=== PATIENT | male | born 1950 | race Caucasian/White ===

== ENCOUNTER 2016-09-07 07:33 | Emergency (ER) | payer BC ==
[2016-09-07] MEDS ORDERED: Tetan/Diph/Pertus SYR(Tdap)* 0.5 ML SYR(BOOSTRIX) use SYR IM ONE (07:54)
[2016-09-07 07:59] VITALS: BP 137/67
--- NOTE | 2016-09-07 08:00 | UC ---
Skin Complaint HPI - HPI Summary HPI Summary: FOREIGN BODY LEFT PALM X 1 DAY THORN WENT IN THE LEFT PALM , + PAIN , SWELLING, HE THINK HE GOT THE THORN OUT NO FEVER, NO CHILLS, NO ERYTHEMA - History of Current Complaint Chief Complaint: UCUpperExtremity Time Seen by Provider: 09/07/16 07:40 Stated Complaint: FB IN LEFT HAND Hx Obtained From: Patient Onset/Duration: Sudden Onset, Lasting Days - 1, Still Present Timing: Constant Onset Severity: Moderate Current Severity: Moderate Location: Hand (Right) - RIGHT PALM Character: Pain, Redness, Raised, Painful Aggravating: Touch Alleviating: Nothing Associated Signs & Symptoms: Positive: Negative. Negative: Fever, Chills, Cough , Wheezing Related History: Foreign Body - Allergy/Home Medications Allergies/Adverse Reactions: Allergies Allergy/AdvReac Type Severity Reaction Status Date / Time No Known Allergies Allergy Verified 09/07/16 07:41 Review of Systems Constitutional: Negative Skin: Other - FB LEFT HAND Eyes: Negative ENT: Negative Respiratory: Negative All Other Systems Reviewed And Are Negative: Yes PMH/Surg Hx/FS Hx/Imm Hx Previously Healthy: Yes - Surgical History Surgical History: Yes Surgery Procedure, Year, and Place: ACDF-C3/C4-4-5 YRS AGO-[place]. [facility] REMOVED-OFFICE. 2 HIP RESURFACING. VASECTOMY. CARPAL TUNNEL. POLYPECTOMY. Laminectomy 2016 - Family History Known Family History: Negative: Diabetes - Social History Alcohol Use: None Substance Use Type: Marijuana Substance Use Comment - Amount & Last Used: [facility] Smoking Status (MU): Never Smoked Tobacco - Immunization History Most Recent Influenza Vaccination: 2016 Most Recent Tetanus Shot: UNKNOWN Most Recent Pneumonia Vaccination: UTD Physical Exam Triage Information Reviewed: Yes Appearance: Well-Appearing, No Pain Distress, Well-Nourished Vital Signs: Initial Vital Signs Temp 97.4 F 09/07/16 07:43 Pulse 70 09/07/16 07:43 Resp 18 09/07/16 07:43 BP 137/67 09/07/16 07:43 Pulse Ox 99 09/07/16 07:43 Vital Signs Reviewed: Yes Eyes: Positive: Conjunctiva Clear ENT: Positive: Normal ENT inspection, Hearing grossly normal, Pharynx normal Neck: Positive: Supple, Nontender, No Lymphadenopathy Respiratory: Positive: Chest non-tender, Lungs clear, Normal breath sounds, No respiratory distress Cardiovascular: Positive: RRR, No Murmur, Pulses Normal Abdominal Exam: Normal Skin: Positive: Other - + PUNCTURE WOUND LEFT PALM , NO FB NOTED, MILD TENDERNESS, NO ERYTHEMA, NO SWELLING Course/Dx - Diagnoses Provider Diagnoses: FB LEFT PALM. PUNCTURE WOUND LEFT HAND Discharge - Discharge Plan Condition: Stable Disposition: HOME Prescriptions: Amoxicillin/Clavulanate TAB* [Augmentin TAB 875*] 875 mg PO BID #20 tab Patient Education Materials: Soft Tissue Foreign Body (ED), Puncture Wound (ED) Referrals: Arun DICK,Jude Rosa [Primary Care Provider] - If Needed
== END 2016-09-07 08:08 | disposition home or self-care (01) ==
LOC: UCCORT 07:33
DX: S61.442A Puncture wound with foreign body of left hand, initial encounter (principal); W45.8XXA Other foreign body or object entering through skin, initial encounter; Y92.9 Unspecified place or not applicable
CPT/HCPCS: 90471; 90715; 99212; G0463